=== PATIENT | male | born 1960 | race Caucasian/White ===

== ENCOUNTER 2017-03-07 12:31 | Day surgery (SDC) | payer BC ==
[2017-03-03 15:27] VITALS: BMI 29.2
[2017-03-07] MEDS ORDERED: MIDAZOLAM HCL 2 MG/2 ML SINGLE DOSE VIAL ONE (14:47)
[2017-03-07] MEDS ORDERED: PROPOFOL 20 ML ONE (14:50)
[2017-03-07] MEDS ORDERED: LEVOFLOXACIN 500 MG PREMIX BAG IVPB ONE (14:50)
[2017-03-07] MEDS ORDERED: ONDANSETRON 4 MG/2 ML VIAL IVPUSH PRN (14:53)
[2017-03-07] MEDS ORDERED: ACETAMINOPHEN 325 MG TABLET (FP) PO PRN (14:53)
[2017-03-07] MEDS ORDERED: LACTATED RINGERS SOLUTION 1,000 ML IV SCH (15:00)
[2017-03-07 16:09] VITALS: PULSE 56
[2017-03-07 16:10] VITALS: TEMP 97.9
--- NOTE | 2017-03-07 16:23 | OP ---
Operative Note - Note: Operative Date: 03/07/17 Pre-Operative Diagnosis: right renal stone Operation: right ESWL Findings: 8mm x 6mm right mid pole renal stone Post-Operative Diagnosis: Same as Pre-op Surgeon: Iron Dinh Anesthesia: Fractional
[2017-03-07 17:19] VITALS: BP 117/56
--- NOTE | 2017-03-07 18:51 | EKG ---
Test Reason : Blood Pressure : / mmHG Vent. Rate : 062 BPM Atrial Rate : 062 BPM P-R Int : 186 ms QRS Dur : 098 ms QT Int : 414 ms P-R-T Axes : 060 027 047 degrees QTc Int : 420 ms NORMAL SINUS RHYTHM INCOMPLETE RIGHT BUNDLE BRANCH BLOCK BORDERLINE ECG WHEN COMPARED WITH ECG OF 01-DEC-2015 09:37, INCOMPLETE RIGHT BUNDLE BRANCH BLOCK IS NOW PRESENT Confirmed by FABRICIO ROCKWELL MD ([id number]) on 03/07/2017 6:50:32 PM Referred By: Confirmed By:FABRICIO ROCKWELL MD
--- NOTE | 2017-03-08 09:12 | OP ---
DATE OF OPERATION: 03/07/2017 PREOPERATIVE DIAGNOSIS: Right renal stone. POSTOPERATIVE DIAGNOSIS: Right renal stone. PROCEDURE: Right extracorporeal shock wave lithotripsy. ATTENDING PHYSICIAN: Charly Leary MD ANESTHESIA: General. DESCRIPTION OF OPERATION: The patient was brought in the operating room, placed in supine position on the operating room table. Ultrasonography and fluoroscopy were performed. An 8 mm x 6 mm right mid-pole renal stone was identified. Extracorporeal shock wave lithotripsy was then started once fractional anesthesia had been given; 3000 impulses at 20 joules of power were administered to the stone. Excellent fragmentation of the stone was noted on real-time ultrasonography and fluoroscopy. No complications were noted. Disposition of the patient was to the recovery room. CHARLY LEARY M.D. /[id number]
== END 2017-03-07 17:27 | disposition home or self-care (01) ==
LOC: JASU-SURG 12:31
PROVIDERS: ATTEND Urology
PROC: 0TF3XZZ Fragmentation in Right Kidney Pelvis, External Approach (ICD-10-PCS; principal; 2017-03-07 14:15)
DX: N20.0 Calculus of kidney (principal)
CPT/HCPCS: 93005; 93010; 94760

== ENCOUNTER 2021-02-02 04:39 | Day surgery (SDC) | payer BC ==
[2021-01-30 11:57] VITALS: BMI 29.7
[2021-02-02] MEDS ORDERED: MIDAZOLAM HCL 2 MG/2 ML SINGLE DOSE VIAL ONE ×2 (12:32→13:20)
[2021-02-02] MEDS ORDERED: DEXAMETHASONE SOD PHOSPHATE 4 MG/1 ML VIAL ONE (13:10)
[2021-02-02 15:44] VITALS: BP 118/72; PULSE 60; TEMP 98
== END 2021-02-02 15:30 | disposition home or self-care (01) ==
LOC: JASU-SURG 04:39
PROVIDERS: ATTEND Urology
PROC: 0TF3XZZ Fragmentation in Right Kidney Pelvis, External Approach (ICD-10-PCS; principal; 2021-02-02 13:00)
DX: N20.0 Calculus of kidney (principal)

== ENCOUNTER 2021-06-22 05:16 | Day surgery (SDC) | payer BC ==
[2021-06-19 11:25] VITALS: BMI 29.7
[2021-06-22] MEDS ORDERED: PROPOFOL 20 ML ONE (10:56)
[2021-06-22] MEDS ORDERED: LIDOCAINE HCL/PF 2% SDV 5ML VIAL ONE (10:57)
[2021-06-22] MEDS ORDERED: MIDAZOLAM HCL 2 MG/2 ML SINGLE DOSE VIAL ONE (10:57)
[2021-06-22] MEDS ORDERED: GLYCOPYRROLATE 0.2 MG/1 ML VIAL ONE (10:57)
[2021-06-22] MEDS ORDERED: KETOROLAC TROMETHAMINE 30 MG/1 ML VIAL ONE (10:57)
[2021-06-22 13:16] VITALS: TEMP 98
[2021-06-22 13:40] VITALS: BP 126/75; PULSE 62
== END 2021-06-22 13:30 | disposition home or self-care (01) ==
LOC: JASU-SURG 05:16
PROVIDERS: ATTEND Urology
PROC: 0TF4XZZ Fragmentation in Left Kidney Pelvis, External Approach (ICD-10-PCS; principal; 2021-06-22 10:00)
DX: N20.0 Calculus of kidney (principal)

== ENCOUNTER 2023-08-15 04:08 | Day surgery (SDC) | payer BC ==
[2023-08-10 15:32] VITALS: BMI 31.9
[2023-08-15 11:15] VITALS: RESP 20
[2023-08-15] MEDS ORDERED: MIDAZOLAM HCL 2 MG/2 ML SINGLE DOSE VIAL ONE (14:22)
[2023-08-15 15:49] VITALS: BP 121/76; PULSE 60; TEMP 96.9
== END 2023-08-15 16:01 | disposition home or self-care (01) ==
LOC: JASU-SURG 04:08
PROVIDERS: ATTEND Urology
PROC: 0TF3XZZ Fragmentation in Right Kidney Pelvis, External Approach (ICD-10-PCS; principal; 2023-08-15 12:00)
DX: N20.0 Calculus of kidney (principal)

== ENCOUNTER 2024-02-27 04:15 | Day surgery (SDC) | payer BC ==
[2024-02-24 11:18] VITALS: BMI 31.9
[2024-02-27] MEDS ORDERED: ONDANSETRON 4 MG/2 ML VIAL ONE (13:05)
[2024-02-27] MEDS ORDERED: MIDAZOLAM HCL 2 MG/2 ML SINGLE DOSE VIAL ONE (13:05)
[2024-02-27 13:42] VITALS: PULSE 71; RESP 18; TEMP 97.3
[2024-02-27 14:44] VITALS: BP 127/70
== END 2024-02-27 14:38 | disposition home or self-care (01) ==
LOC: JASU-SURG 04:15
PROVIDERS: ATTEND Urology
PROC: 0TF4XZZ Fragmentation in Left Kidney Pelvis, External Approach (ICD-10-PCS; principal; 2024-02-27 13:10)
DX: N20.0 Calculus of kidney (principal)